=== PATIENT | male | born 1975 ===

== ENCOUNTER → 2018-05-04 | Day surgery (SDC) | payer OTHER ==
[2018-05-02 08:36] VITALS: BMI 21.0; BMI 23.0
[~2018-05-04] VITALS: Ht 177.8 cm; Wt 68.3 kg
[~2018-05-04] MED LIST: ATROPINE SULFATE 0.1 MG/ML 5ML SYR IV PRN; BUPIVACAINE 0.5 % 5 MG/1 ML MPF 30ML VIAL INFIL ONE; BUPIVACAINE 0.5 % 5 MG/1 ML PF 10ML VIAL ONE; CEFAZOLIN 2000MG IV PUSH 15 ML IV SCH; EpHEDrine SULFATE INJ 50 MG/ML AMP IV PRN; FENTANYL CITRATE INJ 50 MCG/1 ML 2 ML VIAL ONE; FLUMAZENIL 0.1 MG/1 ML 10 ML VIAL IV PRN; HYDROmorphone INJ 1 MG/ML SYR IV PRN; LACTATED RINGER'S 1000ML 1,000 ML IV SCH; LIDOCAINE HCL 2% 2 ML VIAL (20MG/ML) ONE; MIDAZOLAM HCL 1 MG/ML 2ML VIAL ONE; NALOXONE HCL 0.4 MG/1 ML VIAL/CARP IV PRN; ONDANSETRON INJ 2 MG/ML 2 ML VIAL IV PRN; ONDANSETRON INJ 2 MG/ML 2 ML VIAL ONE; OXYCODONE/ACETAMINOPHEN 5-325 TAB PO PRN; PROMETHAZINE HCL INJ 12.5 MG in SODIUM CHLORIDE 0.9% 50ML 50 ML IV PRN; PROPOFOL IV EMULSION 10 MG/ML 20 ML VIAL ONE; ROCURONIUM BROMIDE 10 MG/ML 5 ML VIAL ONE; SODIUM CHLORIDE 0.9% 1000ML 1,000 ML IV SCH
[2018-05-04 09:02] VITALS: BP 124/73; PULSE 73; TEMP 36.7; O2SAT 100; Ht 177.8 cm; Wt 68.3 kg
--- NOTE | 2018-05-04 09:48 | History & Physical Bridge Note ---
H&P Re-Evaluation Bridge Note: I have examined the patient, reviewed the History & Physical and in the interval since the performance of the History & Physical I have noted the following changes of clinical significance: No changes noted
--- NOTE | 2018-05-04 13:36 | [facility] Post Operative Brief Note ---
Immediate Operative Summary Operative Date May 04, 2018. Pre-Operative Diagnosis Left Inguinal Hernia, possible right Post-Operative Diagnosis Large Left indirect Inguinal Hernia Procedure(s) Performed Laparoscopic Left Inguinal Hernia Repair with Mesh Surgeon Dr. Calle Component Assembler Surgeon(s) Alexsandra Barrera PA-C Estimated Blood Loss 7 ml Findings Consistent with Post-Op Diagnosis Specimens no specimen per surgeon Drains None Anesthesia Type General Complication(s) none Disposition Accompanied Pt To Recover: no Disposition: Recovery Room / PACU
--- NOTE | 2018-05-04 13:44 | [facility] Operative Report ---
Operative Report Operative Date May 04, 2018. Pre-Operative Diagnosis Left Inguinal Hernia, possible right Post-Operative Diagnosis Large indirect left inguinal hernia Procedure(s) Performed laparoscopic left inguinal hernia repair with mesh (TEP) Surgeon Dr. Calle Supervisor [employer] Coating Surgeon(s) Alexsandra Barrera PA-C Estimated Blood Loss 7 ml Findings large left indirect inguinal hernia reduced, no hernia on the right. Progrip mesh placed on left. Specimens no specimen per surgeon Drains None Anesthesia GETA Complication(s) None Disposition Recovery Room / PACU Indications 42-year-old incarcerated male with large partially reducible left inguinal hernia, plan for laparoscopic left inguinal hernia repair, possible right. The risks of the procedure were discussed, all questions were answered, and the patient agreed to proceed with surgery as planned. Description of Procedure The patient was properly identified, consented, and taken to the operating room where he was placed in the supine position. General endotracheal anesthesia was induced. SCDs and a safety belt were placed. A castro catheter was placed. Preoperative antibiotics were administered. The patient's groins and abdomen were prepped and draped in the standard sterile fashion. Surgical timeout was performed and all parties were in agreement that this was the correct patient and procedure to be performed and we continued as planned. A transverse infraumbilical incision was made to the right of midline with electrocautery and deepened down to the fascia with blunt dissection. A transverse incision was made in the anterior rectus sheath on the right. The rectus muscle was pulled laterally exposing the posterior rectus sheath. A large [place] was used to bluntly dissect the preperitoneal space down to the pubic symphysis. This was then replaced with a laparoscopic preperitoneal dissection balloon, which was inflated under direct visualization and held in place for approximately 30 seconds. This was then removed and the preperitoneal space was insufflated with carbon dioxide which the patient tolerated without incident. Two 5 mm ports were then placed in the midline. Dissection started on the left, beginning laterally at the anterior superior iliac spine. Lawson's ligament was then dissected medially. The cord structures were circumferentially dissected. A very large incarcerated indirect hernia was noted. It was dissected away from the cord structures. There was no tear in the peritoneum identified, however the peritoneum did fill with insufflation and a 5 mm port was placed in the left lower quadrant to allow for better visualization. The contralateral side was then dissected in a similar manner, and no hernia was noted. Progrip mesh was placed on the left and covered the direct, indirect, and femoral spaces. The mesh was held in place, the ports were removed, and the space was allowed to collapse. The anterior rectus sheath fascia was closed with 3-0 Vicryl suture. The skin of all port sites were closed with 4-0 Monocryl subcuticular suture, and Dermabond was placed over the incisions. The patient was extubated in the operating room and taken to the PACU for recovery without apparent incident. Any air in the scrotum was reduced, and the testicles were confirmed to be in the scrotum. All sponge, instrument, and needle counts were correct at the conclusion of the procedure. The patient tolerated the procedure well. The physician's household assistant was present and scrubbed for the entire to the case. She was essential in positioning the patient, prepping and draping, retraction and exposure, driving the laparoscope, closure the incisions, and placement of the dressings. I attest to the content of the Intraoperative Record and any orders documented therein. Any exceptions are noted below.
--- NOTE | 2018-05-04 13:56 | Discharge Instructions ---
Discharge Instructions Date of Service May 04, 2018. Admission Reason for Admission: Left Inguinal Hernia Discharge Discharge Diagnosis / Problem: Left Inguinal Hernia Discharge Goals Goal(s): Decrease discomfort, Improve function Activity Recommendations Activity Limitations: as noted below Lifting Limitations: no more than 10 pounds Exercise/Sports Limitations: until after follow-up appointment May Resume Sexual Activity: after follow-up appointment Shower/Bathe: tomorrow . Instructions / Follow-Up Instructions / Follow-Up Patient is limited to no heavy lifting- no lifting over 10 lbs for the next 6 weeks. Patient has surgical glue, Dermabond, over his incisions. He may shower tomorrow, but patient is not allowed to scrub or soak the incisions for the next 3 weeks. For pain, patient can take Tylenol #3 with Codeine 300mg/30mg - Patient can take 1-2 tablets every 6 hrs as needed for pain for the next 3 days. Any questions or concerns please call the General Surgery clinic at [phone]. Current Hospital Diet Patient's current hospital diet: Discharge Diet Recommended Diet: Regular Diet Procedures Procedures Performed: Laparoscopic Left Inguinal Hernia Repair with Mesh Pending Studies Studies pending at discharge: no Medical Emergencies . Who to Call and When: Medical Emergencies: If at any time you feel your situation is an emergency, please call 911 immediately. . Non-Emergent Contact Non-Emergency issues call your: Primary Care Provider, Surgeon Call Non-Emergent contact if: temperature is above 101.5, your pain is not controlled, wound has increased drainage, wound has increased redness . "Provider Documentation" section prepared by Alexsandra Barrera. .
--- NOTE | 2018-05-04 14:23 | Anesthesiology Progress Note ---
Anesthesia Post Op Note Date & Time May 04, 2018 at 14:23 Vital Signs Pain Intensity: 0 Vital Signs Past 12 Hours Date Time Temp Pulse Resp B/P (MAP) Pulse Ox O2 Delivery O2 Flow Rate FiO2 05/04/18 14:10 76 11 130/69 97 Room Air 05/04/18 14:00 75 12 119/75 100 Oxymask 10 05/04/18 13:50 36.8 86 12 128/71 100 Oxymask 10 05/04/18 09:02 36.7 73 16 124/73 (90) 100 Room Air Notes Mental Status: alert / awake / arousable, participated in evaluation Pt Amnestic to Procedure: Yes Nausea / Vomiting: adequately controlled Pain: adequately controlled Airway Patency, RR, SpO2: stable & adequate BP & HR: stable & adequate Hydration State: stable & adequate Anesthetic Complications: no major complications apparent
[2018-05-04 15:20] VITALS: BP 111/61; PULSE 91; O2SAT 95
[2018-05-04 16:05] VITALS: TEMP 36.5
== END | disposition home or self-care (01) ==
LOC: C.ACU 08:39
PROVIDERS: ATTEND Surgery
DX: K40.90 Unilateral inguinal hernia, without obstruction or gangrene, not specified as recurrent (principal); F32.9 Major depressive disorder, single episode, unspecified